=== PATIENT | male | born 1950 | race Caucasian/White ===

== ENCOUNTER → 2024-01-03 11:37 | Outpatient (REF) | payer OTHER, SELFPAY | LOC: RCS 11:37 | PROVIDERS: ATTENDING PHYSICIAN Internal Medicine Cardiovascular Disease; FAMILY PHYSICIAN Family Medicine | DX: R06.09 Other forms of dyspnea (principal) | CPT/HCPCS: 93017; 93350 ==

== ENCOUNTER → 2024-05-04 12:03 | Outpatient (REF) | payer OTHER, SELFPAY | LOC: HWRAD 12:03 | PROVIDERS: ATTENDING PHYSICIAN Neurological Surgery; FAMILY PHYSICIAN Family Medicine | DX: M48.062 Spinal stenosis, lumbar region with neurogenic claudication (principal); M54.16 Radiculopathy, lumbar region | CPT/HCPCS: 72100 ==

== ENCOUNTER 2025-02-04 12:12 | Emergency (ER) | payer OTHER, SELFPAY ==
[2025-02-04 12:15] VITALS: BP 198/119
--- NOTE | 2025-02-04 13:09 | ED.GENMED ---
History of Present Illness
General
Chief Complaint: Blood Pressure Problem
Source: patient and spouse
Exam Limitations: none
Time Seen by Provider: 02/04/25 13:06
Nursing documentation reviewed up to this point in time: agreed with
History of Present Illness
History of Present Illness:
Patient is a 74-year-old male who presents to the ER for evaluation of elevated blood pressure. Patient has been on valsartan for hypertension however last week went to the doctor's office and his blood pressure was elevated 150s over 90s. His
family doctor instructed him to start checking it and he started yesterday. Since last night his blood pressures been elevated around 180s over 100s even 190s over 100s. Today he took his blood pressure medicine however proceeded to increase to
200s over 100s which is what prompted him to come to the ER. He denies any headache but does have buzzing in his ears. He denies any chest pain shortness of breath. He was seen by cardiology over a year ago and had a normal stress test. He takes
valsartan 160 mg a day in addition he takes atorvastatin finasteride and tamsulosin .
Past History
Past History
ED Past Medical History: HTN and Other (Colitis)
ED Past Surgical History: Orthopedic
Phy Exam
General Physical Exam
General Presentation: no apparent distress
General Skin: warm and dry
General Habitus: normal
General Mental: alert
General Hydration: appears well hydrated
Cardiovascular Exam
Cardiovascular Exam: regular rate/rhythm, no murmur and normal peripheral pulses
Pulmonary Exam
Pulmonary Exam: lungs clear and no respiratory distress
Neurological Exam
Neurological Exam: alert and oriented x3
Musculoskeletal Exam
Musculoskeletal Exam: full ROM
Skin Exam
Skin Exam: normal color and warm/dry
Course
Orders/Labs/Results
Orders:
Orders
02/04/25 13:25
Electrocardiogram (*1) Stat
Reason for Study: Other
Other Reason for Exam: chest pain
CT Head W/o Iv Contrast Urgent
Comment:
Reason For Exam: elevated bp ringing in ears
Cardiac Monitoring- Treatment ONCE
EKG- Treatment ONCE
IV Insert/Care/Rem.- Treatment PRN
02/04/25 13:50
Complete Blood Count/With Diff Urgent
Comprehensive Metabolic Panel Urgent
Abnormal Lab Results
02/04/25
13:50
MCH 31.8 H pg
(27.0-31.0)
Absolute Lymphs (auto) 1.0 L 10^3/uL
(1.2-3.4)
Absolute Monos (auto) 0.9 H 10^3/uL
(0.1-0.6)
Lymphocytes % 15.3 L %
(20.5-51.1)
Monocytes % 13.5 H %
(1.7-9.3)
BUN 8 L mg/dl
(9-20)
02/04/25 13:50
02/04/25 13:50
Vital Signs
Initial and Last Documented VS:
Initial Vital Signs
Pulse Resp BP Pulse Ox
90 18 198/119 98
02/04/25 12:15 02/04/25 12:15 02/04/25 12:15 02/04/25 12:15
Last Documented Vital Signs
Pulse Resp BP Pulse Ox
76 17 156/100 97
02/04/25 13:30 02/04/25 13:30 02/04/25 13:19 02/04/25 13:30
Engineering Executive consulted with Physician
Engineering Executive consulted with physician?: Yes
Name of Physician Consulted: Vahid
MDM/Problems Addressed
Differential Diagnosis Includes:
Not limited to elevated blood pressure
MDM/Problems Addressed:
Patient is a 74-year-old male with hypertension on losartan presents for evaluation of elevated blood pressure. Patient was told his blood pressure was elevated at his PCPs office last week and was told to monitor it however he just tarted
monitoring last night. Because it was elevated he came to the ER. He denies any headache or blurred vision. He complained of mild buzzing in his ears. He presents awake alert no acute distress. No chest pain. His EKG is unremarkable his labs
including kidney function are normal his CAT scan is negative. Blood pressure is elevated here however stable for discharge home with close outpatient follow-up with PCP. Patient admits to a very high sodium diet we did discuss foods low in sodium
and foods to avoid.
*Radiology
Radiology exam reviewed: radiology read reviewed
*Pulse Oximetry
SaO2: 98
Oxygen Mode of Delivery: Room air
Patient hypoxic: no
*EKG
Interpreted by ED Provider?: Yes
Interpretation: normal
Heart Rate: 72
Rate: normal
Rhythm: sinus
Ischemia: no ischemia
*Critical Care Note
Total Time (30-74mins, 75-104mins- exclusive of procedures): Not Applicable
ED Attending Note
-
Portions of this chart may have been created with voice recognition software.� Occasional wrong word or��sound alike� substitutions may have occurred due to the inherent limitations of voice recognition software.
Discharge Plan
Departure
Patient Disposition: Home (Routine Discharge)
Date of Disposition: 02/04/25
Time of Disposition: 15:05
Patient with high blood pressure during this ER visit?: Yes
Condition: Fair
Covid-19: Not Applicable
Discharge Problem:
Hypertension
Instructions: High Blood Pressure (DC), BLOOD PRESSURE
Prescriptions:
No Action
losartan 50 MG tablet
50 mg PO DAILY
atorvastatin 20 MG tablet
20 mg PO DAILY
tamsulosin 0.4 MG capsule
0.4 mg PO BID
finasteride 5 MG tablet
5 mg PO DAILY
mesalamine [Apriso] 0.375 GM capsule,extended release 24hr
0.375 gm PO BID
Referrals:
Guillaume Galo DO [Family Provider, Family Practice]
Activity Restrictions/Additional Instructions:
As discussed please follow a low-sodium diet as discussed avoid cigars alcohol, caffeine. Please call your family doctor today for an appointment in the next 2 days and return if any worsening of symptoms.
Interventions
Interventions:
*Risk Screen - Suicide Last Done: 02/04/25 12:15
*General Assessment Last Done: 02/04/25 12:15
*ED- Fall Risk Assessment Last Done: 02/04/25 14:00
*ED COVID-19 Vaccine History Last Done: 02/04/25 14:00
*ED Influenza Vaccine History Last Done: 02/04/25 14:00
Discharge Date and Time
Print Language: MEXICAN
[2025-02-04 13:19] VITALS: BP 156/100
[2025-02-04 13:43] VITALS: BMI 28.8
[2025-02-04 14:00] VITALS: BP 170/95
[2025-02-04 14:03] LABS: Hematocrit 47.5 % (39.0-52.0); Hemoglobin 16.4 g/dL (13.0-18.0); Mean Corp Hgb Conc. 34.5 g/dL (33.0-37.0); Mean Corpuscular Volume 92.2 fL (80.0-94.0); Nucleated Red Blood Cells % 0 % (-); Platelet Count 212 10^3/uL (130-400); Red Cell Dist. Width 12.9 % (11.5-14.5)
[2025-02-04 14:16] LABS: ALT (SGPT) 18 U/L (0-50); AST (SGOT) 23 U/L (17-59); Albumin 4.3 g/dl (3.5-5.0); Alkaline Phosphatase 64 U/L (38-126); Blood Urea Nitrogen 8 mg/dl (9-20); Calcium 9.3 mg/dl (8.4-10.2); Carbon Dioxide 30 mmol/L (22-30); Chloride 102 mmol/L (98-107); Estimated Creatinine Clearance 85 ml/min; Glucose 98 mg/dl (70-99); Potassium 4.5 mmol/L (3.5-5.1); Sodium 136 mmol/L (135-145); Total Protein 6.7 g/dl (6.3-8.2); eGFR > 60.00
[2025-02-04 14:56] VITALS: BP 176/109
[2025-02-04 15:00] VITALS: BP 176/109
== END 2025-02-04 15:40 | disposition home or self-care (01) ==
LOC: EMR 12:12
PROVIDERS: Nurse Practitioner; EMERGENCY PHYSICIAN Emergency Medicine; FAMILY PHYSICIAN Family Medicine
DX: I10 Essential (primary) hypertension (principal)
CPT/HCPCS: 99284; 70450; 80053; 85025; 93005